=== PATIENT | female | born 1960 | race African-American/Black ===

== ENCOUNTER → 2016-11-27 | Outpatient (CLI) | payer OTHER ==
[~2016-11-27] MED LIST: ASPI-110 PO; AZAT50 PO; AZEL1SPR2 EACH NARE; DOCU100T9 PO; DRIS50002 PO; FERR1TAB36 PO; FERR325T2 PO; FLUT50SP EACH NARE; GABA600T PO; HYDR12.57 PO; IMIT100T PO; IMUR50TA PO; MIDO10TA PO; MOBI15TA PO; MORP1TAB26 PO; OMEP20TA PO; OXYC-396 PO; OXYM.05%I; POTA1TAB4 PO; SERT-129 PO; TRIA.1%T TOPICAL; TRIAM.1%T TOPICAL; VENL225T PO; ZYRT10CA PO
--- NOTE | 2016-11-29 08:58 | RSPPFT ---
DATE OF PROCEDURE: 11/27/16 COMMENTS: Spirometry with FVC of 2.8 predicted 3.2, FEV1 of 2.4 predicted 2.6, FEV1/FVC ratio 86% predicted 81%. IMPRESSION: On the basis of the above, patient's spirometry is within the predicted range.
== END ==
LOC: HRSP 13:14
PROVIDERS: ATTEND Family Medicine
DX: R06.02 Shortness of breath (principal)
CPT/HCPCS: 94060

== ENCOUNTER 2017-03-06 20:00 | Emergency (ER) | payer OTHER ==
[~2017-03-06] VITALS: Ht 167.6 cm; Wt 100.0 kg
[~2017-03-06 20:00] MED LIST changes: -FERR325T2 PO; -IMUR50TA PO; -MORP1TAB26 PO; -POTA1TAB4 PO
[2017-03-06 20:04] VITALS: BP 141/81; PULSE 86; RESP 16; TEMP 98.9; O2SAT 100
[2017-03-06 21:28] VITALS: BP 130/73; PULSE 75; RESP 18; O2SAT 100
[2017-03-06] MEDS ORDERED: FERR325T2 PO (21:50)
[2017-03-06] MEDS ORDERED: MOBI15TA PO (21:58)
[2017-03-06] MEDS ORDERED: IMUR50TA PO (21:58)
[2017-03-06] MEDS ORDERED: MORP1TAB26 PO (21:58)
[2017-03-06] MEDS ORDERED: POTA1TAB4 PO (21:58)
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
[2017-03-06] MEDS ORDERED: KETOROLAC TROMETHAMINE 60 MG/2 ML (IM) VIAL IM ONE (22:15)
[2017-03-06] MEDS ORDERED: ORPHENADRINE INJ 60 MG/2 ML AMP IM ONE (22:15)
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
== END 2017-03-06 23:15 | disposition home or self-care (01) ==
LOC: NEPE 20:00
DX: S16.1XXA Strain of muscle, fascia and tendon at neck level, initial encounter (principal); S62.663A Nondisplaced fracture of distal phalanx of left middle finger, initial encounter for closed fracture; I10 Essential (primary) hypertension; V89.2XXA Person injured in unspecified motor-vehicle accident, traffic, initial encounter; Z79.01 Long term (current) use of anticoagulants; Z86.2 Personal history of diseases of the blood and blood-forming organs and certain disorders involving the immune mechanism; Z87.39 Personal history of other diseases of the musculoskeletal system and connective tissue; Z87.09 Personal history of other diseases of the respiratory system; Z86.59 Personal history of other mental and behavioral disorders; Z87.19 Personal history of other diseases of the digestive system; Z86.69 Personal history of other diseases of the nervous system and sense organs
CPT/HCPCS: 70450; 71010; 72125; 73140; 96372; 99285; J1885; J2360; L0150

== ENCOUNTER → 2017-03-14 | Outpatient (CLI) | payer OTHER ==
[~2017-03-14] MED LIST changes: -DRIS50002 PO; -FERR1TAB36 PO; +IMUR50TA PO; +MORP1TAB26 PO; -OXYM.05%I; +POTA1TAB4 PO; -SERT-129 PO; -TRIAM.1%T TOPICAL; -ZYRT10CA PO
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
== END ==
LOC: HRAD 14:10
DX: M54.2 Cervicalgia (principal); M54.5 Low back pain; G89.29 Other chronic pain; R51 Headache; G47.30 Sleep apnea, unspecified
CPT/HCPCS: 72050; 72110

== ENCOUNTER → 2017-07-20 | Outpatient (CLI) | payer OTHER ==
--- NOTE | 2017-07-20 10:23 | RADRPT ---
EXAM DATE/TIME: 07/20/2017 09:49 [facility] COMPARISON: No previous studies available for comparison. INDICATIONS : Dysphagia. Patient states that food and liquids are going down slowly and getting stuck. FLUORO TIME: 1.8 minutes IMAGE COUNT: 17 CONTRAST: 1. Liquid E-Z Paque Barium Sulfate (60% w/v, 41% w.w) MEDICAL HISTORY : Hypertension. Gastroesophageal reflux disease SURGICAL HISTORY : Hysterectomy. Cervical fusion, laminectomy 1995 and 1997. ENCOUNTER: Initial ACUITY: 3 months PAIN SCORE: 0/10 LOCATION: Esophagus. FINDINGS: Patient status post anterior cervical fusion from C4-C7. There is good alignment of the cervical spin e and fusion. On the lateral view, one top screws has backed out by approximately 2-3 mm. The hardwar e is grossly intact. Air-contrast views of the hypopharynx demonstrate a normal mucosal surface without filling defect. R apid sequence images of the hypopharynx and cervical esophagus during the passage of barium demonstra te a normal swallowing function. No evidence of aspiration. There is hypertrophy of the cricopharyng eus muscle the level of C4-5. No significant extraluminal defects are seen along the posterior wall o f the cervical esophagus. Multiphasic examination of the esophagus demonstrates no esophageal fold t hickening, ulceration, or filling defect. There is some very mild narrowing of the distal esophagus a t the GE junction. This does not restrict flow of barium. However, there is a mild delay in the trans it of barium tablet across this area. In the supine position, there is moderate gastroesophageal refl ux extending from the GE junction up to the thoracic inlet. Mild tertiary contractions are demonstrat ed. CONCLUSION: 1. There is hypertrophy of the cricopharyngeus muscle at the level of C4-5. 2. There is mild narrowing of the distal thoracic esophagus at the GE junction. There is a mild delay in the transit of the barium tablet across this area. 3. There is moderate gastroesophageal reflux in the supine position. Mild esophageal dysmotility. 4. Status post anterior cervical fusion from C4-C7. One of the top screws on the lateral view has britni ked out by approximately 2-3 mm. However, no significant extraluminal defect is seen along the trimmer sawyer ior wall of the cervical esophagus at this level. Zenon Sanon MD on July 20, 2017 at 10:16 Board Certified Radiologist. This report was verified electronically.
== END ==
LOC: HRAD 09:11
PROVIDERS: ATTEND Internal Medicine Sleep Medicine
DX: R13.10 Dysphagia, unspecified (principal)
CPT/HCPCS: 74230

== ENCOUNTER 2017-09-08 12:50 | Emergency (ER) | payer OTHER ==
[~2017-09-08] VITALS: Ht 167.6 cm; Wt 95.5 kg
[~2017-09-08 12:50] MED LIST changes: -ASPI-110 PO; +ASPI1TAB57 PO; -IMUR50TA PO; +IMUR50TA5 PO; -OMEP20TA PO; +OMEP20TA93 PO
[2017-09-08 12:51] VITALS: BP 124/91; PULSE 91; RESP 14; TEMP 98.2; O2SAT 97
--- NOTE | 2017-09-08 13:29 | PD ---
HPI Chief Complaint: Pain: Acute or Chronic Time Seen by Provider: 13:12 Travel History International Travel<30 days: No Contact w/Intl Traveler<30days: Yes Name of Country Traveled to: [facility] Traveled to known affect area: No History of Present Illness HPI 57-year-old Afro-[place] female presents the emergency department with 3 day history of left anterior and posterior chest discomfort and shoulder pain. This started after moving a sofa, where one end was dropped. Patient also has discomfort in the right lower back. Patient has a prescription for 30 mg oxycodone, which she takes occasionally, with a history of C4 / 5 laminectomy, in the distant past. She states this did not help her pain. Denies shortness of breath or nausea or vomiting. Patient has increased pain with movement. Patient denies radicular pain in the left upper extremity. Vascular pain in the right lower leg. She has increased pain with deep breath and cough. She has no recent fever or chills. She is allergic to baclofen, fentanyl, and methadone. 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) High Cholesterol: No Chemotherapy: No Chest Pain: Yes Congestive Heart Failure: No COPD: No Cerebrovascular Accident: No Diabetes: No Diminished Hearing: No Endocrine: No Gastrointestinal Disorders: Yes (reflux and ulcers) GERD: Yes Genitourinary: No Headaches: Yes Hepatitis: No Hiatal Hernia: No Hypertension: Yes Immune Disorder: No Implanted Vascular Access Dvce: Yes Musculoskeletal: Yes (mild arthritis) Neurologic: Yes (migraines) Psychiatric: Yes (anxiety and depression) Reproductive: No Respiratory: No (CPAP at night) Migraines: Yes Myocardial Infarction: No Radiation Therapy: No Seizures: No Sickle Cell Disease: No Sleep Apnea: No Thyroid Disease: No ?: Not LMP: postmenopausal Menopausal: Yes Para: 3 Past Surgical History Abdominal Surgery: Yes (fissure repair) AICD: No Body Medical Devices: PINS Cardiac Surgery: No Ear Surgery: No Endocrine Surgery: No Eye Surgery: No Genitourinary Surgery: No Gynecologic Surgery: Yes (hysterectomy tubaligation) Hysterectomy: Yes Joint Replacement: No Neurologic Surgery: Yes (CERVICAL SURGERY X 2 FIRST ONE C2-C3 & 2ND SURGERY C4- 6) Oral Surgery: No Pacemaker: No Thoracic Surgery: No Other Surgery: Yes Social History Alcohol Use: No Tobacco Use: No Substance Use: No Allergies-Medications (Allergen,Severity, Reaction): Coded Allergies: baclofen (Unverified Allergy, Unknown, 05/15/17) unknonw reaction fentanyl (Unverified Adverse Reaction, Intermediate, Severe itching., 05/15) methadone (Unverified Adverse Reaction, Intermediate, Says she had a bad reaction to it and won't try again. , 05/15/17) Reported Meds & Prescriptions Reported Meds & Active Scripts Active Flexeril (Cyclobenzaprine HCl) 10 Mg Tab 10 Mg PO TID Prednisone 20 Mg Tab 20 Mg PO BID Triamcinolone Topical (Triamcinolone Acetonide) 0.1% Cream 1 Applic TOPICAL BID Imitrex (Sumatriptan Succinate) 100 Mg Tab 100 Mg PO ONCE PRN If a satisfactory response has not been obtained at 2 hours, a second dose may be administered Venlafaxine ER 24 HR (Venlafaxine HCl) 225 Mg Tab 225 Mg PO HS Gabapentin 600 Mg Tab 600 Mg PO BID Reported Imuran (Azathioprine) 50 Mg Tab 200 Mg PO DAILY IN THE MORNING Hazardous agent: use appropriate precautions for handling and disposal. Mobic (Meloxicam) 15 Mg Tab 15 Mg PO DAILY PRN Morphine ER (Morphine Sulfate) 60 Mg Tab 60 Mg PO BID K-Tab (Potassium Chloride) 20 Meq Tab 20 Meq PO DAILY Omeprazole 20 Mg Tab 20 Mg PO BID Aspirin 81 (Aspirin) 81 Mg Tabdr 81 Mg PO DAILY Hydrochlorothiazide 12.5 Mg Cap 12.5 Mg PO DAILY Azelastine Nasal Mahomet (Azelastine HCl) 0.1% Mahomet 2 Mahomet EACH NARE HS Midodrine 10 Mg Tab 10 Mg PO BID Docusate Sodium 100 Mg Tab 100 Mg PO BID Azathioprine 50 Mg Tab 100 Mg PO HS Hazardous agent use appropriate precautions for handling and disposal. Fluticasone Nasal Mahomet 50 Mcg/Act Naspr 50 Mcg EACH NARE BID 50 mcg/spray Oxycodone (Oxycodone HCl) 20 Mg Tab 20 Mg PO BID PRN Review of Systems Except as stated in HPI: all other systems reviewed are Neg General / Constitutional: No: Fever Eyes: No: Visual changes HENT: No: Headaches Cardiovascular: Positive: Chest Pain or Discomfort, No: Palpitations, Irregular Rhythm, Tachycardia, Diaphoresis, Syncope, Dyspnea on exertion, Varicosities, Varicosities, Phlebitis, Claudication Respiratory: No: Cough, Shortness of Breath, Wheezing Gastrointestinal: No: Nausea, Vomiting, Diarrhea, Abdominal Pain Genitourinary: No: Dysuria Musculoskeletal: Positive: Myalgias, Limited ROM, Pain (see history present illness) Skin: No Rash Neurologic: No: Weakness Psychiatric: No: Depression Endocrine: No: Polydipsia Hematologic/Lymphatic: No: Easy Bruising Physical Exam Narrative GENERAL: Patient appears in mild to moderate distress. SKIN: Warm and dry. Color. Normal turgor. No rash. HEAD: Atraumatic. Normocephalic. EYES: Pupils equal and round. No scleral icterus. No injection or drainage. ENT: No nasal bleeding or discharge. Mucous membranes pink and moist. Pharynx is clear. Airway is patent. NECK: Trachea midline. No bony tenderness or step-off. Range of motion is normal. CARDIOVASCULAR: Regular rate and rhythm. RESPIRATORY: No accessory muscle use. Clear to auscultation. Breath sounds equal bilaterally. Patient has reproducible pain with palpation of the soft tissues of the left pectoralis region as well as posterior shoulder and trapezius. No point tenderness or crepitus. No subcutaneous emphysema. GASTROINTESTINAL: Abdomen soft, non-tender, nondistended. Hepatic and splenic margins not palpable. MUSCULOSKELETAL: Extremities without clubbing, cyanosis, or edema. No obvious deformities. Patient has mild tenderness in the right lower lumbar soft tissues , but no bony tenderness or step-off. Negative straight leg raise pain bilaterally. Patient has increased pain in the chest with motion of the left arm and with motion of the torso. NEUROLOGICAL: Awake and alert. No obvious cranial nerve deficits. Motor grossly within normal limits. Five out of 5 muscle strength in the arms and legs. Normal speech. PSYCHIATRIC: Appropriate mood and affect; insight and judgment normal. Data Data Last Documented VS Vital Signs Date Time Temp Pulse Resp B/P (MAP) Pulse Ox O2 Delivery O2 Flow Rate FiO2 09/08/17 14:37 16 09/08/17 13:45 100 Nasal Cannula 2.00 09/08/17 13:45 09/08/17 12:51 98.2 91 Orders Orders Electrocardiogram (09/08/17 13:18) Ckmb (Isoenzyme) Profile (09/08/17 13:18) Complete Blood Count With Diff (09/08/17 13:18) Comprehensive Metabolic Panel (09/08/17 13:18) Prothrombin Time / Inr (Pt) (09/08/17 13:18) Act Partial Throm Time (Ptt) (09/08/17 13:18) Troponin I (09/08/17 13:18) Chest, Single Ap (09/08/17 13:18) Ecg Monitoring (09/08/17 13:18) Bilateral Bp Monitoring (09/08/17 13:18) Iv Access Insert/Monitor (09/08/17 13:18) Oximetry (09/08/17 13:18) Oxygen Administration (09/08/17 13:18) Sodium Chloride 0.9% Flush (Ns Flush) (09/08/17 13:30) Ketorolac Inj (Toradol Inj) (09/08/17 13:30) Morphine Inj (Morphine Inj) (09/08/17 13:30) Diazepam (Valium) (09/08/17 13:30) CKMB (09/08/17 13:45) CKMB% (09/08/17 13:45) Labs Laboratory Tests Test 09/08/17 13:45 White Blood Count 5.3 TH/MM3 Red Blood Count 4.04 MIL/MM3 Hemoglobin 11.4 GM/DL Hematocrit 35.6 % Mean Corpuscular Volume 88.1 FL Mean Corpuscular Hemoglobin 28.3 PG Mean Corpuscular Hemoglobin Concent 32.1 % Red Cell Distribution Width 15.3 % Platelet Count 218 TH/MM3 Mean Platelet Volume 8.3 FL Neutrophils (%) (Auto) 71.6 % Lymphocytes (%) (Auto) 18.1 % Monocytes (%) (Auto) 9.5 % Eosinophils (%) (Auto) 0.4 % Basophils (%) (Auto) 0.4 % Neutrophils # (Auto) 3.8 TH/MM3 Lymphocytes # (Auto) 1.0 TH/MM3 Monocytes # (Auto) 0.5 TH/MM3 Eosinophils # (Auto) 0.0 TH/MM3 Basophils # (Auto) 0.0 TH/MM3 CBC Comment DIFF FINAL Differential Comment Prothrombin Time 10.2 SEC Prothromb Time International Ratio 1.0 RATIO Activated Partial Thromboplast Time 23.6 SEC Blood Urea Nitrogen 13 MG/DL Creatinine 1.06 MG/DL Random Glucose 116 MG/DL Total Protein 7.1 GM/DL Albumin 3.2 GM/DL Calcium Level 8.7 MG/DL Alkaline Phosphatase 96 U/L Aspartate Amino Transf (AST/SGOT) 37 U/L Alanine Aminotransferase (ALT/SGPT) 26 U/L Total Bilirubin 0.5 MG/DL Sodium Level 140 MEQ/L Potassium Level 4.5 MEQ/L Chloride Level 107 MEQ/L Carbon Dioxide Level 27.6 MEQ/L Anion Gap 5 MEQ/L Estimat Glomerular Filtration Rate 65 ML/MIN Total Creatine Kinase 267 U/L Creatine Kinase MB 1.8 NG/ML Creatine Kinase MB % 0.7 % Troponin I LESS THAN 0.02 NG/ML MDM Medical Decision Making Medical Screen Exam Complete: Yes Emergency Medical Condition: Yes Medical Record Reviewed: Yes Differential Diagnosis Chest wall pain. Muscle spasm. Shoulder strain. Low back pain. Narrative Course Patient is medically stable at time of exam. EKG and chest x-ray are ordered. Labs ordered including CBC, CMP, cardiac panel, IV access is obtained patient is given 4 mg morphine IV as well as 30 mg Toradol IV. Patient is given 5 mg Valium by mouth. Chest x-ray is unremarkable for acute process. CBC is unremarkable. CMP is unremarkable. First troponin is negative. Patient is discussed with Dr. Ling. Patient continued on prednisone 20 mg 3 times a day for 7 days. Patient given Flexeril 10 mg up to 3 times a day #30. Patient should continue with her regular chronic pain medications that she has at home as needed. Recommend patient follow with her primary care physician as needed. Diagnosis Primary Impression: Left-sided chest wall pain Referrals: Primary Care Physician Patient Instructions: Chest Wall Pain (GEN), General Instructions, Narcotic given in the ED Additional Instructions: Chest x-ray is unremarkable for acute process. CBC is unremarkable. CMP is unremarkable. First troponin is negative. Patient is discussed with Dr. Ling. Patient continued on prednisone 20 mg 3 times a day for 7 days. Patient given Flexeril 10 mg up to 3 times a day #30. Patient should continue with her regular chronic pain medications that she has at home as needed. Recommend patient follow with her primary care physician as needed. Med/Other Pt SpecificInfo: Prescription(s) given Scripts Cyclobenzaprine (Flexeril) 10 Mg Tab 10 MG PO TID for Muscle Spasm, #30 TAB 0 Refills Prov: Gracia Ling DO 09/08/17 Prednisone (Prednisone) 20 Mg Tab 20 MG PO BID, #14 TAB 0 Refills Prov: Gracia Ling DO 09/08/17 Disposition: 01 DISCHARGE HOME Condition: Stable James Pritchett Sep 08, 2017 13:29
[2017-09-08] MEDS ORDERED: KETOROLAC TROMETHAMINE 30 MG/ML (IVP) VIAL IV PUSH ONE (13:30)
[2017-09-08] MEDS ORDERED: SODIUM CHLORIDE 0.9% FLUSH 10 ML FLUSH IVF PRN (13:30)
[2017-09-08] MEDS ORDERED: DIAZEPAM 5 MG TAB PO ONE (13:30)
[2017-09-08] MEDS ORDERED: MORPHINE SULFATE 4 MG/ML INJ IV PUSH ONE (13:30)
--- NOTE | 2017-09-08 13:40 | RADRPT ---
EXAM DATE/TIME: 09/08/2017 13:27 [facility] COMPARISON: CHEST SINGLE AP, March 06, 2017, 21:59. INDICATIONS : Shortness of breath and left sided chest pain. MEDICAL HISTORY : None. SURGICAL HISTORY : None. ENCOUNTER: Initial ACUITY: 3 days PAIN SCORE: 6/10 LOCATION: Left chest FINDINGS: A single view of the chest demonstrates the lungs to be symmetrically aerated without evidence of mas s, infiltrate or effusion. The cardiomediastinal contours are unremarkable. Remainder of exam is unc hanged. CONCLUSION: 1. No acute cardiopulmonary disease. Jamie Gomes MD on September 08, 2017 at 13:38 Board Certified Radiologist. This report was verified electronically.
[2017-09-08 13:45] VITALS: RESP 18; O2SAT 100
[2017-09-08 14:07] LABS: AUTOMATED NEUTROPHIL # 3.8 TH/MM3 (1.8-7.7); BASOPHIL % 0.4 % (0.0-2.0); EOSINOPHIL % 0.4 % (0.0-4.0); HEMATOCRIT 35.6 % (35.0-46.0); HEMO FLAGS DIFF FINAL; LYMPH % 18.1 % (9.0-44.0); MEAN CELL VOLUME 88.1 FL (80.0-100.0); MEAN CORPUSCULAR HEMOGLOBIN 28.3 PG (27.0-34.0); MEAN CORPUSCULAR HGB CONC 32.1 % (32.0-36.0); MONO % 9.5 % (0.0-8.0); NEUT % 71.6 % (16.0-70.0); PLATELET COUNT 218 TH/MM3 (150-450); RED BLOOD COUNT 4.04 MIL/MM3 (4.00-5.30); RED CELL DISTRIBUTION WIDTH 15.3 % (11.6-17.2); WHITE BLOOD COUNT 5.3 TH/MM3 (4.0-11.0)
[2017-09-08 14:21] LABS: PROTHROMBIN TIME - PATIENT 10.2 SEC (9.8-11.6)
[2017-09-08 14:22] LABS: APTT (PATIENT) 23.6 SEC (24.3-30.1)
[2017-09-08 14:37] VITALS: RESP 16
[2017-09-08 14:40] LABS: ALKALINE PHOSPHATASE 96 U/L (45-117); ALT (GPT) 26 U/L (10-53); ANION GAP 5 MEQ/L (5-15); AST (GOT) 37 U/L (15-37); BICARBONATE 27.6 MEQ/L (21.0-32.0); BLOOD UREA NITROGEN 13 MG/DL (7-18); CHLORIDE 107 MEQ/L (98-107); CREATINE KINASE 267 U/L (26-192); GLOMERULAR FILTRATION RATE 65 ML/MIN (>89); SODIUM (NA) 140 MEQ/L (136-145); TOTAL BILIRUBIN ADULT 0.5 MG/DL (0.2-1.0)
[2017-09-08 14:41] LABS: POTASSIUM 4.5 MEQ/L (3.5-5.1)
[2017-09-08 14:53] LABS: CKMB 1.8 NG/ML (0.5-3.6)
[2017-09-08] MEDS ORDERED: CYCL10TA PO (15:05)
[2017-09-08] MEDS ORDERED: PRED20 PO (15:05)
--- NOTE | 2017-09-09 13:16 | EKG ---
Date Performed: 09/08/2017 Time Performed: 13:55:18 PTAGE: 57 years EKG: Sinus rhythm MODERATE VOLTAGE CRITERIA FOR LVH, CONSIDER NORMAL VARIANT BORDERLINE ECG Compared to PREVIOUS TRACING , QRS voltage is now higher, especially in aVL, otherwise no significant change. PREVIOUS TRACIN01/26/2015 09.02 DOCTOR: Randy Lopez Interpretating Date/Time 09/09/2017 13:14:41
== END 2017-09-08 15:41 | disposition home or self-care (01) ==
LOC: NEPD 12:50
DX: R07.89 Other chest pain (principal); M79.661 Pain in right lower leg
CPT/HCPCS: 71010; 80053; 82550; 82552; 84484; 85025; 85610; 85730; 93005; 96374; 96375; 99285; J1885; J2270

== ENCOUNTER 2018-03-14 22:59 | Emergency (ER) | payer OTHER ==
[~2018-03-14] VITALS: Ht 172.7 cm; Wt 95.5 kg
[~2018-03-14 22:59] MED LIST changes: +CYCL10TA PO; +PRED20 PO
[2018-03-14 23:44] VITALS: BP 139/66; PULSE 93; RESP 20; TEMP 98.3; O2SAT 99
[2018-03-15] MEDS ORDERED: PANT40TA3 PO (00:35)
[2018-03-15] MEDS ORDERED: METF500T PO (00:35)
[2018-03-15] MEDS ORDERED: ACETAMINOPHEN/HYDROcodone 325 MG/5 MG TAB PO ONE (00:45)
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
[2018-03-15] MEDS ORDERED: LIDO1ADH4 TP (01:29)
== END 2018-03-15 02:40 | disposition home or self-care (01) ==
LOC: NEPD 22:59
DX: S16.1XXA Strain of muscle, fascia and tendon at neck level, initial encounter (principal); S39.012A Strain of muscle, fascia and tendon of lower back, initial encounter; M43.16 Spondylolisthesis, lumbar region; V49.40XA Driver injured in collision with unspecified motor vehicles in traffic accident, initial encounter; Y92.410 Unspecified street and highway as the place of occurrence of the external cause; I10 Essential (primary) hypertension; E11.9 Type 2 diabetes mellitus without complications; J45.909 Unspecified asthma, uncomplicated; M19.90 Unspecified osteoarthritis, unspecified site; F32.9 Major depressive disorder, single episode, unspecified; Z88.8 Allergy status to other drugs, medicaments and biological substances; Z79.84 Long term (current) use of oral hypoglycemic drugs; Z79.899 Other long term (current) drug therapy
CPT/HCPCS: 72040; 72100; 99283